=== PATIENT | female | born 1940 | race Caucasian/White ===

== ENCOUNTER 2017-08-16 07:32 | Day surgery (SDC) | payer MEDICARE, OTHER ==
[~2017-08-16] VITALS: Ht 167.6 cm; Wt 86.3 kg
[~2017-08-16 07:32] MED LIST: ALBU90OI6 INH; ATOR10 PO; BUDE6HFA INH; PANT40 PO
[2017-08-16] MEDS ORDERED: PYRI100 PO (08:11)
[2017-08-16] MEDS ORDERED: ASPI325 PO (08:11)
[2017-08-16] MEDS ORDERED: ERGO400 PO (08:12)
== END 2017-08-16 12:05 | disposition home or self-care (01) ==
LOC: ORSCSDS 07:32
PROVIDERS: Podiatrist Foot & Ankle Surgery
PROC: 0QSQ04Z Reposition Right Toe Phalanx with Internal Fixation Device, Open Approach (ICD-10-PCS; principal; 2017-08-16 09:00)
PROC: 0SPM04Z Removal of Internal Fixation Device from Right Metatarsal-Phalangeal Joint, Open Approach (ICD-10-PCS; principal; 2017-08-16 09:00)
PROC: 0QSN04Z Reposition Right Metatarsal with Internal Fixation Device, Open Approach (ICD-10-PCS; principal; 2017-08-16 09:00)
DX: M20.11 Hallux valgus (acquired), right foot (principal); M20.60 Acquired deformities of toe(s), unspecified, unspecified foot; J44.9 Chronic obstructive pulmonary disease, unspecified; E78.5 Hyperlipidemia, unspecified; Z79.82 Long term (current) use of aspirin; Z79.899 Other long term (current) drug therapy
CPT/HCPCS: C1713; C1769; J0171; J0690; J1100; J2405; J3010; J7120

== ENCOUNTER 2019-02-02 14:09 | Inpatient (IN) | payer MEDICARE, OTHER ==
[~2019-02-02] VITALS: Ht 167.6 cm; Wt 88.5 kg
[~2019-02-02 14:09] MED LIST changes: -ATOR10 PO; +Aspirin EC81 MG PO
[2019-02-02] MEDS ORDERED: LOSARTAN POTASS25 M2 PO (14:22)
[2019-02-02] MEDS ORDERED: ATORVASTATIN CA20 MG PO (14:23)
[2019-02-02] MEDS ORDERED: THERA1 EACH PO (15:26)
[2019-02-02] MEDS ORDERED: PYRI100 PO (15:27)
[2019-02-02] MEDS ORDERED: CALCIUM 500 +1 EAC3 PO (15:28)
[2019-02-02 16:09] LABS: BASOPHILS ABSOLUTE AUTO 0.03 K/mm3 (0.00-0.23); BASOPHILS PERCENT AUTO 0 % (0-2); EOSINOPHILS ABSOLUTE AUTO 0.09 K/mm3 (0.00-0.68); EOSINOPHILS PERCENT AUTO 1 % (0-6); Hemoglobin 12.8 g/dL (11.5-16.0); IMMATURE GRAN ABSOLUTE AUTO 0.03 K/mm3 (0.00-0.10); IMMATURE GRAN PERCENT AUTO 0 % (0-1); LYMPHOCYTES ABSOLUTE AUTO 1.91 K/mm3 (0.84-5.20); LYMPHOCYTES PERCENT AUTO 19 % (21-46); MONOCYTES ABSOLUTE AUTO 1.19 K/mm3 (0.16-1.47); MONOCYTES PERCENT AUTO 12 % (4-13); Mean Corpuscular HGB 31.1 pg (26.0-34.0); Mean Corpuscular Volume 97 fL (80-100); Mean Platelet Volume 12.1 fL (9.1-12.4); NEUTROPHILS PERCENT AUTO 68 % (41-73); Platelet Count 252 K/mm3 (150-400); RDW Coefficient Variation 14.7 % (11.7-14.2); RDW Standard Deviation 52.3 fL (35.1-46.3); Red Blood Cell Count 4.11 M/mm3 (3.80-5.20); White Blood Cell Count 10.25 K/mm3 (4.00-11.30)
[2019-02-02 16:33] LABS: Alanine Aminotransfer (ALT/SGP 180 U/L (12-78); Albumin, Blood 3.3 g/dL (3.4-5.0); Albumin/Globulin Ratio 0.9 (0.8-1.8); Alk Phos 176 U/L (50-136); Anion Gap 6 mmol/L (6-16); Aspartate Aminotrans (AST/SGOT 102 U/L (12-37); Bilirubin, Total 0.9 mg/dL (0.1-1.0); Blood Urea Nitrogen 17 mg/dL (8-24); Bun/Creatinine Ratio 18.5 (12.0-20.0); CO2, Blood 24 mmol/L (21-32); Calcium, Blood 8.9 mg/dL (8.5-10.1); Chloride, Blood 107 mmol/L (98-108); Creatinine, Blood 0.92 mg/dL (0.40-1.00); Globulin, Blood 3.6 g/dL (2.2-4.0); Glomerular Filtration Rate >60 (60-); Glucose, Blood 103 mg/dL (70-99); Potassium, Blood 3.9 mmol/L (3.5-5.5); Sodium, Blood 137 mmol/L (136-145); Total Protein, Blood 6.9 g/dL (6.4-8.2); Troponin I <0.015 ng/mL (0.000-0.040)
[2019-02-02 18:19] LABS: Source, Urine Voided
[2019-02-02 18:21] LABS: Bilirubin, Urine Neg (Neg); Blood, Urine 1+ (Neg); Glucose Qualitative, Urine Neg (Neg); Ketones, Urine 1+ (Neg); Leukocyte Esterase, Urine 3+ (Neg); Nitrite, Urine Neg (Neg); Protein, Urine 1+ (Neg); Specific Gravity, Urine 1.015 (1.003-1.022); Urobilinogen, Urine NORM (Normal)
[2019-02-02 18:32] LABS: Appearance, Urine Clear (Clear); Color, Urine Yellow (P-Yellow); White Blood Cells, Urine 50-100 /hpf (0-5)
[2019-02-02 18:33] LABS: Bacteria Mod /hpf; Squamous Epithelial Cells Few /hpf (Few)
[2019-02-02 19:03] LABS: Magnesium, Blood 1.5 mg/dL (1.6-2.4); Troponin I <0.015 ng/mL (0.000-0.040)
[2019-02-03 02:56] LABS: BASOPHILS ABSOLUTE AUTO 0.03 K/mm3 (0.00-0.23); BASOPHILS PERCENT AUTO 0 % (0-2); EOSINOPHILS PERCENT AUTO 1 % (0-6); Hematocrit 35.8 % (33.0-51.0); Hemoglobin 11.5 g/dL (11.5-16.0); IMMATURE GRAN ABSOLUTE AUTO 0.03 K/mm3 (0.00-0.10); IMMATURE GRAN PERCENT AUTO 0 % (0-1); LYMPHOCYTES ABSOLUTE AUTO 1.59 K/mm3 (0.84-5.20); LYMPHOCYTES PERCENT AUTO 14 % (21-46); MONOCYTES ABSOLUTE AUTO 1.27 K/mm3 (0.16-1.47); MONOCYTES PERCENT AUTO 11 % (4-13); Mean Corpuscular HGB 31.5 pg (26.0-34.0); Mean Corpuscular HGB Conc 32.1 g/dL (31.5-36.5); Mean Corpuscular Volume 98 fL (80-100); Mean Platelet Volume 11.6 fL (9.1-12.4); NEUTROPHILS ABSOLUTE AUTO 8.19 K/mm3 (1.96-9.15); NEUTROPHILS PERCENT AUTO 73 % (41-73); Platelet Count 217 K/mm3 (150-400); RDW Coefficient Variation 14.8 % (11.7-14.2); RDW Standard Deviation 53.5 fL (35.1-46.3); Red Blood Cell Count 3.65 M/mm3 (3.80-5.20); White Blood Cell Count 11.21 K/mm3 (4.00-11.30)
[2019-02-03 03:15] LABS: Alanine Aminotransfer (ALT/SGP 137 U/L (12-78); Albumin, Blood 3.1 g/dL (3.4-5.0); Albumin/Globulin Ratio 0.9 (0.8-1.8); Alk Phos 155 U/L (50-136); Anion Gap 8 mmol/L (6-16); Aspartate Aminotrans (AST/SGOT 59 U/L (12-37); Bilirubin, Total 0.8 mg/dL (0.1-1.0); Blood Urea Nitrogen 13 mg/dL (8-24); Bun/Creatinine Ratio 14.8 (12.0-20.0); CO2, Blood 23 mmol/L (21-32); Calcium, Blood 8.1 mg/dL (8.5-10.1); Chloride, Blood 109 mmol/L (98-108); Creatinine, Blood 0.88 mg/dL (0.40-1.00); Globulin, Blood 3.3 g/dL (2.2-4.0); Glomerular Filtration Rate >60 (60-); Glucose, Blood 102 mg/dL (70-99); Potassium, Blood 3.9 mmol/L (3.5-5.5); Sodium, Blood 140 mmol/L (136-145); Total Protein, Blood 6.4 g/dL (6.4-8.2)
--- NOTE | 2019-02-03 05:37 | NUR ---
ASSUMED CARE APPROXIMATELY @ 2034 . PT A&O X4; INDEPENDENT IN ROOM; PT IS PLEASANT AND COMPLIANT; NEW ONSET AFIB; CARDIZEM GTT RUNNING @ 15; PT ON RA W/ O2 SATS >90; PT DENIES PAIN, DENIES CHEST PAIN; PT REPORTS ONLY SYMPTOM OF SOB AND FEELING "OFF" UPON ARRIVAL; PT CONTINENT; SKID FREE SOCKS PLACED; CALL LIGHT IN REACH; BED IN LOWEST POSITION; WILL CONTINUE TO MONITOR AND ASSESS UNTIL HAND OFF TO DAY SHIFT RN.
--- NOTE | 2019-02-03 13:14 | NUR ---
REC'D REPORT FROM NOC RN'S. PT SITTING ON BESIDE, BACK TO BED. FINISHED WITH BREAKFAST. VSS. ASSESS COMPLETE. CARDIZEM GTT INFUSING AT 10ML/HR. FRIEND IN RM. EDDUCATED ON AFIB AND DISCUSSED POSSIBLE SCENARIOS R/T RHYTHM AND MEDICATIONS.
--- NOTE | 2019-02-03 16:35 | NUR ---
Advanve Directive Education Attepted. Patient tells me that she did request info on Advnce Directives states that she has heard the education piece several times and only wanted the Advance Directive form so she could be reading through it while in the hospital. Patient admits to having several forms at home that are not filled out. Patient wants to read through it on her own. I explain that I would be available to help if needed.
--- NOTE | 2019-02-03 20:14 | NUR ---
PT RESTING IN BED. BEDSIDE REPORT GIVEN TO NHAN RN. PT'S HEART RATE UNCHANGED ON 15MG/HR CARDIZEM GTT SINCE APPROX 1200. CONSULT CALLED TO DR HESS, NEW ORDERS RECEIVED, STARTING PO CADIZEM Q 6 HOURS HOPING TO BE ABLE TO TITRATE PT OFF GTT. PT STILL HAVING SOME LOWER ABOMINAL DISCOMFORT, DR. REYES AWARE. PER PT,STATES DR REYES MENTIONED HAVING ABD US TOMORROW. PT DOING VERY WELL UP OUT OF BED WITH ONLY SBA TO MANAGE IV POLE, HAS ONLY MINIMAL INCREASE IN HEART RATE WITH EXERTION. NO OTHER ACUTE CHANGES THIS SHIFT.
--- NOTE | 2019-02-04 05:03 | NUR ---
SHIFT SUMMARY PT SLEEPING IN ROOM COMFORTABLY AT THIS TIME. NOT ACUTE CHANGES IN STATSU T.O NIGHT. PT DENIED CP OR SOB T/O NIGHT. CARDIZEM GTT INFUSING IN PIV AT 15ML/HR. PT HR REMAINS 100-120'S ON IV CARDIZEM, PT ALSO RECEIVING PO CARDIZEM Q6HR. PT DENIES OTHER NEEDS. PT WAS SBA T/O TO BATHROOM, TOLERATED WELL. PT DENIES OTHER NEEDS. RESP EVEN UNLABORED ON RA W/ SDATS >92%. CALL LIGHT IN REACH, PT CALLS APPROPRIATELY.
--- NOTE | 2019-02-04 17:34 | NUR ---
CARDIZEM GTT CARDIZEM GTT TITRATED DOWN TO 10MLS/HR AT 1530 AFTER HR HAD BEEN MAINTAINING IN 80'S-90'S FOR 1 HR. AFTER 1 HOUR POST TITRATION, HR CONTINUES IN 80'S. PT AMBULATES APPROX 250 FT WITHOUT ANY DYSPNEA AND A HR MAX OF 116. SINCE THEN HAS BEEN RESTING IN BED WITHOUT ANY CHANGES.
--- NOTE | 2019-02-04 17:36 | NUR ---
SHIFT SUMMARY PT HAS DONE WELL TODAY. PO CARDIZEM CHANGES PER CARDIOLOGY HAVE BEEN SUCCESSFUL. WAS ABLE TO WEAN IV CARDIZEM DRIP DOWN FROM 15 MLS/HR TO 10 MLS/HR. RUQ US COMPLETED. PT HAS BEEN PLEASANT AND UPBEAT T/O DAY. DENIES NEEDS AND UP TO RESTROOM WITH SBA.
[2019-02-05 03:37] LABS: BASOPHILS ABSOLUTE AUTO 0.03 K/mm3 (0.00-0.23); BASOPHILS PERCENT AUTO 0 % (0-2); EOSINOPHILS ABSOLUTE AUTO 0.18 K/mm3 (0.00-0.68); EOSINOPHILS PERCENT AUTO 2 % (0-6); Hemoglobin 11.4 g/dL (11.5-16.0); IMMATURE GRAN ABSOLUTE AUTO 0.03 K/mm3 (0.00-0.10); IMMATURE GRAN PERCENT AUTO 0 % (0-1); LYMPHOCYTES ABSOLUTE AUTO 1.11 K/mm3 (0.84-5.20); LYMPHOCYTES PERCENT AUTO 12 % (21-46); MONOCYTES ABSOLUTE AUTO 1.17 K/mm3 (0.16-1.47); MONOCYTES PERCENT AUTO 12 % (4-13); Mean Corpuscular HGB 31.1 pg (26.0-34.0); Mean Corpuscular HGB Conc 32.6 g/dL (31.5-36.5); Mean Corpuscular Volume 96 fL (80-100); NEUTROPHILS ABSOLUTE AUTO 6.93 K/mm3 (1.96-9.15); NEUTROPHILS PERCENT AUTO 73 % (41-73); Platelet Count 243 K/mm3 (150-400); RDW Coefficient Variation 14.6 % (11.7-14.2); RDW Standard Deviation 50.5 fL (35.1-46.3); Red Blood Cell Count 3.66 M/mm3 (3.80-5.20); White Blood Cell Count 9.45 K/mm3 (4.00-11.30)
[2019-02-05 04:01] LABS: Alanine Aminotransfer (ALT/SGP 79 U/L (12-78); Albumin, Blood 2.7 g/dL (3.4-5.0); Albumin/Globulin Ratio 0.7 (0.8-1.8); Alk Phos 152 U/L (50-136); Anion Gap 9 mmol/L (6-16); Aspartate Aminotrans (AST/SGOT 29 U/L (12-37); Bilirubin, Total 0.6 mg/dL (0.1-1.0); Blood Urea Nitrogen 9 mg/dL (8-24); Bun/Creatinine Ratio 11.1 (12.0-20.0); CO2, Blood 23 mmol/L (21-32); Calcium, Blood 8.2 mg/dL (8.5-10.1); Chloride, Blood 104 mmol/L (98-108); Creatinine, Blood 0.81 mg/dL (0.40-1.00); Globulin, Blood 3.7 g/dL (2.2-4.0); Glomerular Filtration Rate >60 (60-); Glucose, Blood 112 mg/dL (70-99); Potassium, Blood 3.6 mmol/L (3.5-5.5); Sodium, Blood 136 mmol/L (136-145); Total Protein, Blood 6.4 g/dL (6.4-8.2)
--- NOTE | 2019-02-05 06:03 | NUR ---
SHIFT SUMMARY PT A&O X4. VSS. MONITOR SHOWS AFIB, HR 80-100 AT REST W/ INCREASE IN HR 110-130'S W/ AMBULATION TO BATHROOM AND BACK. PT ON CARDIZEM GTT AND PO CARDIZEM. CARDIZEM GTT TITRATED FROM 10 MG/HR TO 5 MG/HR THIS SHIFT. PT REPORTS HAVING 2 EPISODES OF DIARRHEA THIS SHIFT, UNWITNESSED BY STAFF. OTHERWISE PT REPORTS "I'M FEELING FINE. JUST READY TO BE HOME." PT RESTING IN BED, ABLE TO SLEEP THIS SHIFT. WILL CONTINUE TO MONITOR AND PROVIDE CARE UNTIL REPORT OFF TO DAY SHIFT RN.
[2019-02-05] MEDS ORDERED: DILTIAZEM 24HR360 MG PO (15:04)
[2019-02-05] MEDS ORDERED: ESCI10 PO (15:04)
[2019-02-05] MEDS ORDERED: XARELTO15 MG PO (15:04)
--- NOTE | 2019-02-05 15:46 | NUR ---
PATIENT D/C'D TO HOME. HR IN THE 90'S THIS AFTERNOON AFTER CARDIZEM GTT D/C'S. PATIENT D/CD WITH CARDIZEM ER. RX MEDICATIONS FAXED TO [facility] [address] TO CALL PATIENT WITH FOLLOW APPT FOR PCP AND [facility]. D/C INSTRUCTIONS AND EDUCATION DISCUSSED WITH PATIENT AND COPY PROVIDED. PATIENT DENIES ANY FURTHER QUESTIONS OR CONCERNS AT THIS TIME.
== END 2019-02-05 15:37 | disposition home or self-care (01) | DRG 308 ==
LOC: ER 14:09 → PCU 17:42
PROVIDERS: Emergency Medicine; ADMIT Family Medicine
DX: I48.91 Unspecified atrial fibrillation (principal); J96.01 Acute respiratory failure with hypoxia; I50.30 Unspecified diastolic (congestive) heart failure; I07.1 Rheumatic tricuspid insufficiency; F32.9 Major depressive disorder, single episode, unspecified; J44.9 Chronic obstructive pulmonary disease, unspecified; K21.9 Gastro-esophageal reflux disease without esophagitis; E78.5 Hyperlipidemia, unspecified; M19.90 Unspecified osteoarthritis, unspecified site; Z88.2 Allergy status to sulfonamides; Z79.82 Long term (current) use of aspirin; Z79.899 Other long term (current) drug therapy
CPT/HCPCS: 36415; 71045; 71260; 76705; 80053; 81001; 83735; 83880; 84443; 84484; 85025; 85379; 93005; 93010; 93306; 94640; 94760; 96365-59; 96366; 96375-59; 99285-25; J0696; J1650; J2405; J7030; Q9967

== ENCOUNTER 2019-02-17 18:51 | Emergency (ER) | payer MEDICARE, OTHER ==
[~2019-02-17] VITALS: Ht 167.6 cm; Wt 86.2 kg
[~2019-02-17 18:51] MED LIST changes: +ATORVASTATIN CA20 MG PO; +CALCIUM 500 +1 EAC3 PO; +DILTIAZEM 24HR360 MG PO; +ESCI10 PO; +LOSARTAN POTASS25 M2 PO; +PYRI100 PO; +THERA1 EACH PO; +XARELTO15 MG PO
[2019-02-17 19:32] LABS: BASOPHILS ABSOLUTE AUTO 0.05 K/mm3 (0.00-0.23); BASOPHILS PERCENT AUTO 0 % (0-2); EOSINOPHILS ABSOLUTE AUTO 0.17 K/mm3 (0.00-0.68); EOSINOPHILS PERCENT AUTO 1 % (0-6); Hematocrit 38.4 % (33.0-51.0); Hemoglobin 12.6 g/dL (11.5-16.0); IMMATURE GRAN ABSOLUTE AUTO 0.23 K/mm3 (0.00-0.10); IMMATURE GRAN PERCENT AUTO 2 % (0-1); LYMPHOCYTES ABSOLUTE AUTO 1.28 K/mm3 (0.84-5.20); LYMPHOCYTES PERCENT AUTO 8 % (21-46); MONOCYTES PERCENT AUTO 9 % (4-13); Mean Corpuscular HGB 31.3 pg (26.0-34.0); Mean Corpuscular HGB Conc 32.8 g/dL (31.5-36.5); Mean Corpuscular Volume 95 fL (80-100); Mean Platelet Volume 10.5 fL (9.1-12.4); NEUTROPHILS ABSOLUTE AUTO 12.15 K/mm3 (1.96-9.15); NEUTROPHILS PERCENT AUTO 80 % (41-73); Platelet Count 390 K/mm3 (150-400); RDW Coefficient Variation 14.6 % (11.7-14.2); RDW Standard Deviation 50.9 fL (35.1-46.3); Red Blood Cell Count 4.03 M/mm3 (3.80-5.20); White Blood Cell Count 15.28 K/mm3 (4.00-11.30)
[2019-02-17 20:02] LABS: Troponin I <0.015 ng/mL (0.000-0.040)
[2019-02-17 20:14] LABS: Alanine Aminotransfer (ALT/SGP 123 U/L (12-78); Albumin, Blood 3.3 g/dL (3.4-5.0); Albumin/Globulin Ratio 0.8 (0.8-1.8); Alk Phos 277 U/L (50-136); Anion Gap 7 mmol/L (6-16); Aspartate Aminotrans (AST/SGOT 50 U/L (12-37); Bilirubin, Total 0.8 mg/dL (0.1-1.0); Blood Urea Nitrogen 10 mg/dL (8-24); Bun/Creatinine Ratio 13.1 (12.0-20.0); CO2, Blood 24 mmol/L (21-32); Calcium, Blood 8.9 mg/dL (8.5-10.1); Chloride, Blood 102 mmol/L (98-108); Creatinine, Blood 0.77 mg/dL (0.40-1.00); Globulin, Blood 4.1 g/dL (2.2-4.0); Glomerular Filtration Rate >60 (60-); Glucose, Blood 107 mg/dL (70-99); Potassium, Blood 4.4 mmol/L (3.5-5.5); Sodium, Blood 133 mmol/L (136-145); Total Protein, Blood 7.4 g/dL (6.4-8.2)
[2019-02-17] MEDS ORDERED: Pacerone100 MG PO (20:54)
[2019-02-17] MEDS ORDERED: LOSA25 PO ×2 (22:19→22:24)
[2019-02-17] MEDS ORDERED: Colace100 MG PO (22:21)
[2019-02-17] MEDS ORDERED: Lasix20 MG PO (22:24)
== END 2019-02-17 23:00 | disposition home or self-care (01) ==
LOC: ER 18:51
PROVIDERS: Physician Assistant
DX: I48.0 Paroxysmal atrial fibrillation (principal); I50.9 Heart failure, unspecified; Z88.2 Allergy status to sulfonamides; Z79.899 Other long term (current) drug therapy; Z79.82 Long term (current) use of aspirin; J44.9 Chronic obstructive pulmonary disease, unspecified; Z85.828 Personal history of other malignant neoplasm of skin
CPT/HCPCS: 36415; 71046; 80053; 83880; 84484; 85025; 93005; 93010; 96374; 99285-25; J1940

== ENCOUNTER → 2019-05-14 | Outpatient (CLI) | payer MEDICARE, OTHER ==
[~2019-05-14] MED LIST changes: +Colace100 MG PO; +LOSA25 PO; +Lasix20 MG PO; +Pacerone100 MG PO
== END | disposition home or self-care (01) ==
LOC: PLD 13:38 → LAB SHORT 13:38
DX: D22.71 Melanocytic nevi of right lower limb, including hip (principal)
CPT/HCPCS: 88305

== ENCOUNTER 2020-01-20 06:21 | Day surgery (SDC) | payer MEDICARE, OTHER ==
[~2020-01-20] VITALS: Ht 162.6 cm; Wt 90.9 kg
[~2020-01-20 06:21] MED LIST changes: +FUROSEMIDE20 MG PO; +METO25 PO; +PROAIR DIGIHAL90 MCG INH; +SYMBICORT 160-4.6 GM INH; +Vitamin D2000 UNIT PO
[2020-01-20] MEDS ORDERED: Lopressor 25 mg25 MG PO (07:15)
[2020-01-20] MEDS ORDERED: Vitamin D2000 UNIT PO (07:17)
[2020-01-20] MEDS ORDERED: CALCIUM 600 +1 EAC7 PO (07:17)
== END 2020-01-20 22:46 | disposition home or self-care (01) ==
LOC: MHTC 06:21
DX: I48.91 Unspecified atrial fibrillation (principal); E78.5 Hyperlipidemia, unspecified; J44.9 Chronic obstructive pulmonary disease, unspecified; K21.9 Gastro-esophageal reflux disease without esophagitis; I08.3 Combined rheumatic disorders of mitral, aortic and tricuspid valves; Z88.2 Allergy status to sulfonamides; Z79.899 Other long term (current) drug therapy; Z79.01 Long term (current) use of anticoagulants; Z79.82 Long term (current) use of aspirin
CPT/HCPCS: 92960; 93005; 93010; 99152; J2250; J3010; J7030

== ENCOUNTER 2022-10-03 05:29 | Day surgery (SDC) | payer MEDICARE, OTHER ==
[2022-10-03] VITALS (12 sets, daily range): BP systolic 96–156; BP diastolic 52–99
[~2022-10-03] VITALS: Ht 162.6 cm; Wt 91.0 kg
[~2022-10-03 05:29] MED LIST changes: +CALCIUM 600 +1 EAC7 PO; +Lopressor 25 mg25 MG PO
[2022-10-03] MEDS ORDERED: XARELTO20 MG PO (06:24)
[2022-10-03] MEDS ORDERED: POTCHL20ER PO (06:24)
--- NOTE | 2022-10-03 08:15 | NUR ---
PT AWAKE AND CONVERSING POST CARDIOVERSION, DENIES PAIN; REMAINS IN SR, VSS.
--- NOTE | 2022-10-03 08:33 | NUR ---
PT DRESSED SELF WITHOUT ISSUE, IV REMOVED-CANNULA INTACT. PT RECEIVED DISCHARGE INSTRUCTIONS, MED LIST AND AFTER CARE INSTRUCTIONS; VERBALIZED GOOD UNDERSTANDING. PT LEFT FACILITY VIA W/C, CONDITION STABLE.
== END 2022-10-03 22:50 | disposition home or self-care (01) ==
LOC: MHTC 05:29
DX: I48.0 Paroxysmal atrial fibrillation (principal); J44.9 Chronic obstructive pulmonary disease, unspecified; K21.9 Gastro-esophageal reflux disease without esophagitis; E78.5 Hyperlipidemia, unspecified; I12.9 Hypertensive chronic kidney disease with stage 1 through stage 4 chronic kidney disease, or unspecified chronic kidney disease; N18.9 Chronic kidney disease, unspecified; Z88.2 Allergy status to sulfonamides; Z79.899 Other long term (current) drug therapy
CPT/HCPCS: 92960; 93005; 93010; J7030

== ENCOUNTER 2025-01-12 06:29 | Day surgery (SDC) | payer OTHER ==
[~2025-01-12] VITALS: Ht 162.6 cm; Wt 94.0 kg
[2025-01-12] VITALS (8 sets, daily range): BP systolic 76–146; BP diastolic 27–101
[~2025-01-12 06:29] MED LIST changes: +Isosorbide Mono30 MG PO; +POTCHL20ER PO; +XARELTO20 MG PO
[2025-01-12] MEDS ORDERED: FentaNYL Citrate 50 MCG/ML 2 ML Injection ONE (07:44)
[2025-01-12] MEDS ORDERED: Heparin Sodium 1000 Units/ML 10ML MDV ONE ×2 (07:45→07:57)
[2025-01-12] MEDS ORDERED: NS 1,000 ML IV ONE ×2 (07:45→07:57)
[2025-01-12] MEDS ORDERED: Verapamil HCL 2.5 MG/ML 2ML Injection ONE (07:57)
[2025-01-12] MEDS ORDERED: NS 250 ML IV ONE (07:57)
[2025-01-12] MEDS ORDERED: Nitroglycerin 2 MG/20 ML BTL ONE (07:58)
[2025-01-12] MEDS ORDERED: NiCARdipine HCL 1,000 MCG/5 ML SYR ONE (08:03)
[2025-01-12] MEDS ORDERED: Midazolam HCl 1MG / ML 2ML Vial ONE (08:23)
--- NOTE | 2025-01-12 11:15 | NUR ---
PT VERBALIZED UNDERSTANDING OF WRITTEN AND VERBAL D/C INST. R WRIST TR BAND REMOVED AND DRESSED /C CLOTH DOT DRNG. R WRIST SPLINT REAPPLIED. IV REMOVED. PT TAKEN OUT OF THE HRT CENTER VIA W/C.
== END 2025-01-12 10:54 | disposition home or self-care (01) ==
LOC: MHTC 06:29
DX: I25.10 Atherosclerotic heart disease of native coronary artery without angina pectoris (principal); R53.83 Other fatigue; R06.09 Other forms of dyspnea; R94.39 Abnormal result of other cardiovascular function study; J44.9 Chronic obstructive pulmonary disease, unspecified; N18.9 Chronic kidney disease, unspecified; K21.9 Gastro-esophageal reflux disease without esophagitis; Z95.0 Presence of cardiac pacemaker; Z79.899 Other long term (current) drug therapy; Z88.2 Allergy status to sulfonamides
CPT/HCPCS: 76937; 93458; 99152; 99153; A9270; C1769; C1894; J1644; J2250; J3010; J7030; J7050; Q9967